=== PATIENT | female | born 2000 | race Caucasian/White ===

== ENCOUNTER 2022-11-22 00:02 | Emergency (ER) | payer MEDICAID, OTHER ==
[~2022-11-22] VITALS: Ht 160 cm; Wt 75.6 kg
[2022-11-22 00:46] LABS: Basophils # (auto) 0 10 ^3/uL (0-0.2); Basophils % (auto) 0.6 % (0.0-2.0); Eosinophils # (auto) 0.1 10 ^3/uL (0-0.8); Eosinophils % (auto) 1.9 % (0.0-7.0); Hematocrit 41.7 % (36.0-46.0); Hemoglobin 14.5 g/dL (12.2-16.2); Lymphocytes # (auto) 2.7 10 ^3/uL (0.4-5.4); Lymphocytes % (auto) 35.3 % (10.0-50.0); Mean Corpuscular Hemoglobin 31.8 pg (28.0-32.0); Mean Corpuscular Hgb Conc. 34.9 g/dL (32.0-36.0); Monocytes # (auto) 0.4 10 ^3/uL (0-1.3); Monocytes % (auto) 5.7 % (0.0-12.0); Neutrophils # (auto) 4.3 10 ^3/uL (1.6-8.6); Neutrophils % (auto) 56.5 % (37.0-80.0); Red Blood Cells 4.58 10^6/uL (4.0-5.20); Red Cell Distribution Width 12.7 % (11.8-14.3); White Blood Cell 7.6 10^3/uL (4.4-10.8)
[2022-11-22 01:38] LABS: Albumin 3.9 g/dL (3.4-5.0); BUN/Creatinine Ratio 12.7 (10.0-20.0); Calcium 9.1 mg/dL (8.5-10.1); Potassium 3.8 mmol/L (3.5-5.1)
[2022-11-22 01:41] LABS: Bilirubin, Total 0.4 mg/dL (0.2-1.0); Total Protein 8.2 g/dL (6.4-8.2)
[2022-11-22] MEDS ORDERED: METOCLOPRAMIDE HCL 10 MG TAB PO ONE (03:15)
[2022-11-22] MEDS ORDERED: ACETAMINOPHEN 325 MG TAB PO ONE (03:15)
[2022-11-22 03:23] VITALS: BP 121/56; PULSE 76; RESP 18; TEMP 97.9; O2SAT 98
[2022-11-22 03:40] LABS: Urine Bacteria FEW /hpf (None Seen); Urine Blood 1+ /uL (Negative); Urine Clarity Clear (Clear); Urine Color Colorless (Yellow); Urine Protein, UAD Negative (Negative); Urine Urobilinogen Normal (Negative); Urine WBC 21 /hpf (0 - 5)
== END 2022-11-22 08:17 | disposition left against medical advice (07) ==
LOC: ER 00:02
DX: O36.4XX0 Maternal care for intrauterine death, not applicable or unspecified (principal); O26.891 Other specified pregnancy related conditions, first trimester; R10.2 Pelvic and perineal pain; Z3A.10 10 weeks gestation of pregnancy
CPT/HCPCS: 36415; 76801; 76817; 80053; 81001; 84702; 85025; 86901; 99284; J8597